=== PATIENT | female | born 1960 | race Caucasian/White ===

== ENCOUNTER 2017-04-15 18:49 | Emergency (ER) | payer OTHER ==
[~2017-04-15] VITALS: Ht 162.6 cm; Wt 140.6 kg
[2017-04-15] MEDS ORDERED: FLEXERIL PO (19:01)
[2017-04-15] MEDS ORDERED: LISINOPRIL20 MG PO (19:02)
[2017-04-15] MEDS ORDERED: NEURONTIN 300300 M1 PO (19:02)
[2017-04-15] MEDS ORDERED: ALBUTEROL2.5 MG/31 INH (19:04)
[2017-04-15 19:34] LABS: ABSOLUTE BASOPHILS 0.1 thou/uL (0.0-0.2); ABSOLUTE EOSINOPHILS 0.1 thou/uL (0.0-0.7); ABSOLUTE LYMPHOCYTES 0.7 thou/uL (0.8-5.3); ABSOLUTE MONOCYTES 0.5 thou/uL (0.0-1.2); ABSOLUTE NEUTROPHILS 4.8 thou/uL (1.6-8.1); BASOPHILS 1.6 %; EOSINOPHILS 1.1 %; HEMATOCRIT 37.5 % (37.0-47.0); HEMOGLOBIN 12.5 gm/dL (12.0-15.0); LYMPHOCYTES 10.7 %; MCH 27.4 pg (26.0-34.0); MCHC 33.4 g/dL (28.0-37.0); MCV 82.1 fL (80.0-100.0); MONOCYTES 7.9 %; MPV 7.4 fl. (7.2-11.1); NUCLEATED RBCS 0 /100WBC; PLATELET COUNT* 190 thou/uL (150-400); POLYS 78.7 %; RBC 4.57 mil/uL (4.20-5.00); RDW-CV 15.4 % (10.5-14.5); WBC 6.1 thou/uL (4.0-11.0)
[2017-04-15 19:40] LABS: ANION GAP 6 mmol/L (7-16); BUN 21 mg/dL (7-18); CALCIUM 8.9 mg/dL (8.5-10.1); CHLORIDE 98 mmol/L (98-107); CO2 29 mmol/L (21-32); CREATININE 1.7 mg/dL (0.6-1.3); GLUCOSE 115 mg/dL (70-99); POTASSIUM 4.1 mmol/L (3.5-5.1); SODIUM 133 mmol/L (136-145)
[2017-04-15 19:51] LABS: ALBUMIN 3.5 g/dL (3.4-5.0); ALKALINE PHOSPHATASE 233 U/L (46-116); SGOT 60 U/L (15-37); SGPT 90 U/L (30-65); TOTAL BILIRUBIN 0.6 mg/dL (<0.1-1.0); TOTAL PROTEIN 8.7 g/dL (6.4-8.2); TROPONIN-I LEVEL <0.06 ng/mL (<0.06)
[2017-04-15 20:11] LABS: NT-PRO BRAIN NAT PEPTIDE 199 pg/mL (<300)
[2017-04-15 20:19] LABS: INFLUENZA A ANTIGEN None Detected (None Detect); INFLUENZA B ANTIGEN None Detected (None Detect)
[2017-04-15] MEDS ORDERED: DUONEB 2.5-0.5 M3 ML INH (21:38)
[2017-04-15] MEDS ORDERED: TESSALON PERLE100 MG PO (21:38)
[2017-04-15] MEDS ORDERED: AUGMENTIN 875-1 EACH PO (21:38)
[2017-04-15] MEDS ORDERED: PREDNISONE 10 M10 MG PO (21:38)
[2017-04-15 21:49] VITALS: BP 123/80
--- NOTE | 2017-04-16 15:46 | EKG ---
[place] [address] ELECTROCARDIOGRAM REPORT Name: SHANA CAMPOS Room: [facility]#: [id number] Admission: 04/15/17 Attend Phys: Discharge: 04/15/17 Date of : 64 Report #: [id number] THIS REPORT FOR: //name// [facility] ED Test Date: 2017-04-15 Test Time: 19:37:50 Pat Name: SHANA CAMPOS Department: Room: Gender: F [employer] Analyst: YESSICA Nuñez : 1960 Requested By: Molly Mccrary Order Number: [id number] MD: Jared Zheng Measurements Intervals [place] Rate: 88 P: [place]: QRS: 1 QRSD: 102 T: 20 QT: 446 QTc: 540 Interpretive Statements Atrial fibrillation Low voltage, precordial leads RSR' in V1 or V2, right VCD or RVH Probable left ventricular hypertrophy Borderline T abnormalities, anterior leads Prolonged QT interval No previous ECG available for comparison Electronically Signed On 04-16-2017 15:46:31 [employer] by Jared Zheng [email or web address] <ELECTRONICALLY SIGNED> By: Jared Zheng MD, FAC 04/16/17 1546 [id number] 36 Jared Zheng MD, [facility] /EPI
== END 2017-04-15 21:52 | disposition home or self-care (01) ==
LOC: M.ERS 18:49
PROVIDERS: Physician Assistant
DX: J40 Bronchitis, not specified as acute or chronic (principal); R09.1 Pleurisy

== ENCOUNTER → 2017-05-29 | Outpatient (CLI) | payer OTHER ==
[~2017-05-29] MED LIST: ALBUTEROL2.5 MG/31 INH; AUGMENTIN 875-1 EACH PO; DUONEB 2.5-0.5 M3 ML INH; FLEXERIL PO; LISINOPRIL20 MG PO; NEURONTIN 300300 M1 PO; PREDNISONE 10 M10 MG PO; TESSALON PERLE100 MG PO
[2017-05-29 14:40] LABS: CREATININE 1.4 mg/dL (0.6-1.3)
== END ==
LOC: M.LAB 14:00 → M.CT 15:00
PROVIDERS: Nurse Practitioner Family
DX: R07.9 Chest pain, unspecified (principal); R05 Cough